=== PATIENT | female | born 1955 | race Caucasian/White ===

== ENCOUNTER 2024-09-07 09:15 | Outpatient (CLI) | payer MEDICARE, SELFPAY ==
--- NOTE | 2024-09-07 09:16 | US_ITS ---
PROCEDURE INFORMATION: Exam: US Abdomen, Limited; Right Upper Quadrant Exam date and time: 09/07/2024 9:25 AM Age: 69 years old Clinical indication: Condition or disease; Liver condition; Cirrhosis TECHNIQUE: Imaging protocol: Real time ultrasound of the abdomen with image documentation. Limited exam focused on the right upper quadrant. COMPARISON: No relevant prior studies available. FINDINGS: Liver: Echogenic mildly nodular liver. Correlate regarding risk factors for hepatocellular disease. Gallbladder: No gallstones. There is no gallbladder wall thickening. Possible small amount of sludge. Biliary ducts: Common bile duct 5 mm Pancreas: Visualized pancreas is unremarkable. Right kidney: Right kidney 9.7 x 4.9 x 5.6 cm. Normal. Portal venous: Flow within the portal vein is towards the liver- hepatopedal Hepatic veins: Hepatic veins are patent. IMPRESSION: Echogenic mildly nodular liver. Correlate regarding risk factors for hepatocellular disease. Consider CT if indicated.
== END 2024-09-07 23:59 | disposition home or self-care (01) ==
LOC: RAD 09:16
PROVIDERS: PCP Internal Medicine Gastroenterology; Visit Provider Internal Medicine Gastroenterology
DX: K75.4 Autoimmune hepatitis (principal); K74.60 Unspecified cirrhosis of liver
CPT/HCPCS: 76705